=== PATIENT | female | born 1995 | race Caucasian/White ===

== ENCOUNTER → 2021-04-09 | Outpatient (CLI) | payer OTHER ==
--- NOTE | 2021-04-10 08:16 | RAD ---
INDICATION: Reason: THYROMEGALY / Spl. Instructions: / History: COMPARISON: None. TECHNIQUE: Grayscale and color ultrasound images obtained of the thyroid. FINDINGS: Right Lobe: 52 x 20 x 16 mm. Left Lobe: 49 x 20 x 13 mm. Heterogeneity throughout IMPRESSION: * Heterogenous thyroid. Would correlate for possible causes such as sequela of thyroiditis. Electronically signed by: Ras Dillard MD (04/10/2021 8:14 AM) [id number]
== END ==
LOC: US 12:28
PROVIDERS: ATTEND Nurse Practitioner Family
DX: E01.0 Iodine-deficiency related diffuse (endemic) goiter (principal)
CPT/HCPCS: 76536